=== PATIENT | male | born 1985 | race Hispanic/Latino ===

== ENCOUNTER 2018-01-08 01:24 | Emergency (ER) | payer OTHER, SELFPAY ==
[2018-01-08 01:39] VITALS: BP 139/100; PULSE 74; RESP 16; TEMP 36.8; O2SAT 98; BMI 34.4
--- NOTE | 2018-01-08 01:45 | ED_ITS ---
HPI - Abdominal Pain General Chief Complaint: Urogenital-Male Stated Complaint: thinks he is passing a kidney stone Time Seen by Provider: 01/08/18 01:36 Source: patient Mode of arrival: ambulatory Limitations: no limitations History of Present Illness HPI narrative: This is a 32-year-old male comes in with complaint of kidney stone. Patient states he has a history of kidney stones. He states that this started overnight, he has pain on the right sort of mid abdomen flank region. Patient states that it is not really changing in location. It feels similar to his prior stones. Has not had any fever, he has been nauseated, threw up twice. His urine is quite dark which is not normal he typically does not have any urinary changes. No diarrhea or constipation. he took an ibuprofen prior to arrival. He has had lithotripsy once before. Other times he just strain his urine and passed the stones. he had his appendix out last year and denies any other abdominal surgeries or medical hx. He does not have a urologist that he is established with. Related Data Previous Rx's Medication Instructions Recorded hydrocodone-acetaminophen [[place]] 1 tab PO Q6H PRN #10 tab 01/08/18 levofloxacin [Levaquin] 500 mg PO DAILY #5 tab 01/08/18 tamsulosin [Flomax] 0.4 mg PO DAILY #7 cap 01/08/18 Allergies Allergy/AdvReac Type Severity Reaction Status Date / Time No Known Drug Allergies Allergy Verified 01/08/18 01:53 Review of Systems Review of Systems All systems reviewed & are unremarkable except as noted in HPI and below Constitutional Denies fever(s) Gastrointestinal Gastrointestinal: Reports abdominal pain (right flank), Denies change in bowel habits, Denies constipation, Denies diarrhea, Denies nausea and Denies vomiting Genitourinary Reports hematuria (dark urine), Denies difficulty urinating, Denies genital pain , Denies dysuria, Reports flank pain (right), Denies urinary frequency and Denies urinary hesitancy PFSH Medical History Kidney stones (Acute) Surgical History Hx of appendectomy (Acute) Social History details: Partner, Dre household members: significant other Smoking Status: Never smoker Exam Narrative Exam Narrative: GENERAL: Alert and oriented x three, Moderately obese, well- appearing male in moderate distress. HEENT: Head normocephalic, atraumatic, EOMI, pupils reactive, face symmetric, moist mucous membranes NECK: Supple, full range of motion CARDIOVASCULAR: Regular rate and rhythm without murmurs, rubs or gallops. RESPIRATORY: Breath sounds equal bilaterally, no wheezes rales or rhonchi. ABDOMEN: Soft, nontender. Normoactive bowel sounds all 4 quadrants. No guarding or rebound, rigidity, no mass : No CVA tenderness EXTREMITIES: Normal range of motion, no clubbing or edema. Neurovascularly intact NEUROLOGICAL: Cranial nerves II through XII grossly intact. Moving all extremities SKIN: Warm, dry, no petechiae, no rashes or lesions. Initial Vital Signs Initial Vital Signs: Vital Signs Temperature 98.2 F 01/08/18 01:39 Pulse Rate 74 01/08/18 01:39 Respiratory Rate 16 01/08/18 01:39 Blood Pressure 139/100 H 01/08/18 01:39 Pulse Oximetry 98 01/08/18 01:39 Course Orders Ordered: ED Orders 01/08/18 01:38 Complete Blood Count AUTO DIFF Stat Comprehensive Metabolic Panel Stat Lipase Stat 01/08/18 01:39 Urinalysis and Microscopic Stat Urine Culture Stat 01/08/18 02:38 US renal complete Stat Discontinued Medications Hydrocodone Bitart/Acetaminophen (Vicodin Prepack) 1 bottle MISC SEEINSTR ONE Stop: 01/08/18 03:24 Last Admin: 01/08/18 03:32 Dose: 1 bottle Hydromorphone HCl (Dilaudid) 1 mg IV NOW ONE Stop: 01/08/18 02:39 Last Admin: 01/08/18 02:56 Dose: 1 mg Sodium Chloride (Normal Saline 0.9%) 1,000 mls @ 1,000 mls/hr IV BOLUS ONE Stop: 01/08/18 02:43 Last Infusion: 01/08/18 02:57 Dose: 0 mls/hr Admin: 01/08/18 01:54 Dose: 1,000 mls/hr Ketorolac Tromethamine (Toradol) 30 mg IV NOW ONE Stop: 01/08/18 01:45 Last Admin: 01/08/18 01:54 Dose: 30 mg Levofloxacin (Levaquin) 500 mg PO NOW ONE Stop: 01/08/18 03:24 Last Admin: 01/08/18 03:32 Dose: 500 mg Ondansetron HCl (Zofran) 4 mg IV NOW ONE Stop: 01/08/18 01:45 Last Admin: 01/08/18 01:54 Dose: 4 mg Tamsulosin HCl (Flomax) 0.4 mg PO NOW ONE Stop: 01/08/18 03:24 Last Admin: 01/08/18 03:32 Dose: 0.4 mg Vital Signs - 8 hr 01/08/18 01:39 01/08/18 03:35 Temperature 98.2 F 97.4 F L Pulse Rate 74 69 Respiratory Rate 16 16 Blood Pressure 139/100 H Blood Pressure [Right Arm] 131/92 H Pulse Oximetry 98 96 MDM - Abdominal Pain Lab Data Result diagrams: 01/08/18 01:38 01/08/18 01:38 Lab Results 01/08/18 01/08/18 01/08/18 Range/Units 01:38 01:38 01:39 WBC 7.7 (4.5-11.0) X10^3/uL RBC 5.78 (4.5-5.9) X10^6/uL Hgb 18.7 H (13.5-17.5) g/dL Hct 52.5 (41-53) % MCV 90.8 (80-100) fL MCH 32.4 (26-34) PG MCHC 35.7 (30-36) % RDW 12.7 (11.6-14.8) % Plt Count 190 (150-400) X10^3/uL Neut % (Auto) 48.8 L (50-75) % Lymph % (Auto) 41.6 H (25-40) % [place] % (Auto) 5.8 (3-14) % Eos % (Auto) 3.2 (2-4) % Baso % (Auto) 0.6 (0-2) % Neut # (Auto) 3800 (8009-2640) /uL Sodium 143 (137-145) mmol/L Potassium 4.2 (3.4-5.1) mmol/L Chloride 102 (98-107) mmol/L Carbon Dioxide 29 (22-32) mmol/L BUN 11 (9-20) mg/dL Creatinine 0.90 (0.66-1.25) mg/dL Estimated GFR > 60.0 (>60) mL/min BUN/Creatinine Ratio 12.2 (6-22) Glucose 109 H (70-100) mg/dL Calcium 9.2 (8.4-10.2) mg/dL Total Bilirubin 0.9 (0.2-1.3) mg/dL AST 31 (17-59) IU/L ALT 40 (21-72) IU/L Alkaline Phosphatase 75 (38-126) U/L Total Protein 8.2 (6.3-8.2) g/dL Albumin 4.6 (3.5-5.0) g/dL Globulin 3.6 (1.7-4.1) g/dL Albumin/Globulin Ratio 1.3 (1.0-2.8) Lipase 44 (23-300) U/L Urine Color Brown Urine Appearance Cloudy Urine pH 5.0 (4.5-8.0) Ur Specific [place] >=1.030 H (1.000-1.035) Urine Protein 2+ H (Negative) Urine Glucose (UA) Negative (Normal) g/dL Urine Ketones Trace H (NEGATIVE) Urine Occult Blood 3+ H (Negative) Urine Nitrate Negative (Negative) Urine Bilirubin Negative (NEGATIVE) Urine Urobilinogen 0.2 (0.2) E.U./dL Ur Leukocyte Esterase Trace H (NEGATIVE) Urine RBC >100/hpf (0-5/HPF) Urine WBC 0-1/hpf (0-5/HPF) Urine Bacteria Few (2-10) H (None) Ur Culture Indicated? Specimen cultured Micro UA Comment Not Reportable Imaging Data renal US: Radiologist's impression: Right-sided hydro mild to moderate. Nonobstructing calculi here in mid to inferior poles measuring between 5 and 7 mm. No perinephric fluid collections identified. Normal left kidney. Limited evaluation of the bladder as it is empty at of exam. MDM Narrative Medical decision making narrative: recheck after medications and patient is still quite uncomfortable. Plan for US, and additional pain medication. Patient is feeling much more comfortable after this. CBC, CMP are appropriate, urine shows leuk esterase but no nitrates may have contaminant from epithelials, will cover the abx, plan for flomax, medication for pain control and follow up. Given referral to urology, patient has not seen before. Discussed with patient prelim US shows hydro on right, renal function is normal. Discharge Plan Departure Patient Disposition: Home Clinical Impression: Kidney stone Discharge Date/Time: 01/08/18 03:48 Interventions: ED Discharge Assessment Last Done: 01/08/18 03:47 Instructions: DI for Kidney Stones Activity Restrictions/Additional Instructions: Follow-up with primary care or Urology in the next 3-5 days for recheck. Your US shows hydronephrosis and your renal function needs to be rechecked in several days. Take Flomax once daily until gone Strain urine for stones. Take ibuprofen up to 800 mg every 8 hr as needed for pain. You may take some [place] as needed for breakthrough pain, this medication can make you sleepy do not drive, perform hazards activities or make any major decisions while taking it. Return to the ER for fevers, persistent vomiting, rapidly worsening or increasing abdominal or flank pain, black or bloody stools, passing out or other new or concerning symptoms. Prescriptions: New tamsulosin [Flomax] 0.4 mg capsule 0.4 mg PO DAILY Qty: 7 RF: 0 levofloxacin [Levaquin] 500 mg tablet 500 mg PO DAILY Qty: 5 RF: 0 hydrocodone-acetaminophen [[place]] 5-325 mg tablet 1 tab PO Q6H PRN (Reason: pain) Qty: 10 RF: 0 Referrals: Fran Jones MD [Non-Staff] -
[2018-01-08 01:52] LABS: Add Manual Diff / Slide Review NO; Basophils Percent Auto 0.6 % (0-2); Eosinophils Percent Auto 3.2 % (2-4); Hematocrit 52.5 % (41-53); Hemoglobin 18.7 g/dL (13.5-17.5); Lymphocytes Percent Auto 41.6 % (25-40); Mean Corpuscular HGB Conc 35.7 % (30-36); Mean Corpuscular Hemoglobin 32.4 PG (26-34); Mean Corpuscular Volume 90.8 fL (80-100); Monocytes Percent Auto 5.8 % (3-14); Neutrophils Absolute Auto 3800 /uL (3000-5900); Neutrophils Percent Auto 48.8 % (50-75); Platelet Count 190 X10^3/uL (150-400); Red Blood Cell Count 5.78 X10^6/uL (4.5-5.9); Red Cell Distribution Width 12.7 % (11.6-14.8); White Blood Cell Count 7.7 X10^3/uL (4.5-11.0)
[2018-01-08] MEDS: SODIUM CHLORIDE 0.9% 1,000 ML 1000 ML IV (01:54)
[2018-01-08] MEDS: ONDANSETRON 4 MG/2 ML INJ IV (01:54)
[2018-01-08] MEDS: KETOROLAC 60 MG/2 ML VIAL 30 MG IV (01:54)
[2018-01-08 01:57] LABS: Alanine Aminotransferase 40 IU/L (21-72); Albumin 4.6 g/dL (3.5-5.0); Albumin Globulin Ratio 1.3 (1.0-2.8); Alkaline Phosphatase 75 U/L (38-126); Aspartate Aminotransferase 31 IU/L (17-59); BUN Creatinine Ratio 12.2 (6-22); Bilirubin Total 0.9 mg/dL (0.2-1.3); Blood Urea Nitrogen 11 mg/dL (9-20); Calcium 9.2 mg/dL (8.4-10.2); Carbon Dioxide 29 mmol/L (22-32); Chloride 102 mmol/L (98-107); Estimated Glomerular Filt Rate > 60.0 mL/min (>60); Globulin 3.6 g/dL (1.7-4.1); Glucose 109 mg/dL (70-100); HEMOLYSIS 28 (0-50); Lipase 44 U/L (23-300); Potassium 4.2 mmol/L (3.4-5.1); Sodium 143 mmol/L (137-145); Total Protein 8.2 g/dL (6.3-8.2)
[2018-01-08 02:01] LABS: Bilirubin Urine UA NEGATIVE (NEGATIVE); Glucose Urine UA NEGATIVE (Normal); Ketones Urine UA TRACE (NEGATIVE); Leukocyte Esterase Urine UA TRACE (NEGATIVE); Nitrite Urine UA NEGATIVE (Negative); Occult Blood Urine UA 3+ (Negative); Protein Urine UA 2+ (Negative); Specific Gravity Urine UA >=1.030 (1.000-1.035); Urobilinogen Urine UA 0.2 E.U./dL (0.2)
[2018-01-08 02:04] LABS: Appearance Urine UA CLOUDY; Color Urine UA BROWN
[2018-01-08 02:07] LABS: RBC Urine >100/HPF (0-5/HPF)
[2018-01-08 02:08] LABS: Bacteria Urine Few (2-10); Culture Indicated Urine Specimen Cultured; WBC Urine 0-1/HPF (0-5/HPF)
--- NOTE | 2018-01-08 02:38 | DI.US.S_ITS ---
PROCEDURE: US RENAL COMPLETE INDICATIONS: right flank pain, hx of stone TECHNIQUE: Real-time scanning was performed of the kidneys and bladder, with image documentation. COMPARISON: None. FINDINGS: Kidneys: Kidneys are normal in size. Right kidney measures 12.3 cm long; left kidney measures 13.1 cm long. Right renal cortical thickness is 2.2 cm; left renal cortical thickness is 1.8 cm. Renal cortical echotexture is normal. Mild to moderate right sided hydronephrosis is noted. 7 mm in diameter nonobstructing stone noted in the inferior pole of the right kidney. 6 mm diameter nonobstructing stone noted in the superior pole of the right kidney. 5 mm in diameter nonobstructing stone in the superior pole of the right kidney. No left-sided renal stones or hydronephrosis. No suspicious solid mass lesions. Bladder: Urinary bladder was empty at the time of imaging. Miscellaneous: No free pelvic fluid. IMPRESSION: 1. Mild to moderate right-sided hydronephrosis. 2. Nonobstructing right renal cortical stones. 3. No left-sided renal stones or hydronephrosis. Dictated by: Susannah Felix MD, PhD on 01/08/2018 at 8:32 Approved by: Susannah Felix MD, PhD on 01/08/2018 at 8:34
[2018-01-08] MEDS: HYDROMORPHONE 1 MG INJ IV (02:56)
[2018-01-08] MEDS: HYDROCODONE/ACET 5/325 PREPACK 1 BOTTLE MISC (03:32)
[2018-01-08] MEDS: TAMSULOSIN 0.4 MG CAPSULE PO (03:32)
[2018-01-08] MEDS: levoFLOXacin 250 MG TABLET 500 MG PO (03:32)
[2018-01-08 03:35] VITALS: BP 131/92; PULSE 69; RESP 16; TEMP 36.3; O2SAT 96
== END 2018-01-08 03:48 | disposition home or self-care (01) ==
PROVIDERS: Emergency Provider Emergency Medicine
DX: N20.0 Calculus of kidney (principal)
CPT/HCPCS: 36591; 76770; 80053; 81001; 83690; 85025; 87077; 87086; 87147; 96361; 96374; 96375; 99283; 99284; J1170; J1885; J2405

== ENCOUNTER 2019-01-20 05:50 | Emergency (ER) | payer OTHER, SELFPAY ==
[2019-01-20 05:51] VITALS: BP 156/107; PULSE 77; RESP 18; TEMP 36.6; O2SAT 97; BMI 34.0
--- NOTE | 2019-01-20 06:02 | ED_ITS ---
HPI - Male Genitourinary General Chief complaint: Urogenital-Male Stated complaint: thinks he has a kidney stone Time Seen by Provider: 01/20/19 05:51 Source: patient Mode of arrival: Ambulatory Limitations: no limitations History of Present Illness HPI Narrative: 33-year-old male here for evaluation of what he thinks is a right-sided kidney stone. He states he has had multiple kidney stones in the past. He states that he has never been able to catch any the stones but he has passed them all on his own. Has never had any surgical removal of the stones. He states that approximately 0300 hours the morning he woke up with right-sided pain radiating around to his right groin that he states feels like prior kidney stones. No vomiting. Has never seen a urologist for symptoms. Has not tried anything for symptoms prior to arrival Related Data Previous Rx's Medication Instructions Recorded hydrocodone-acetaminophen [[place]] 1 tab PO Q6H PRN #10 tab 01/08/18 levofloxacin [Levaquin] 500 mg PO DAILY #5 tab 01/08/18 tamsulosin [Flomax] 0.4 mg PO DAILY #7 cap 01/08/18 Allergies Allergy/AdvReac Type Severity Reaction Status Date / Time No Known Drug Allergies Allergy Verified 01/08/18 01:53 Review of Systems Constitutional Constitutional: Denies fever(s) Cardiovascular Cardiovascular: Denies chest pain and Denies dyspnea Respiratory Respiratory: Denies dyspnea Gastrointestinal Gastrointestinal: Reports abdominal pain, Denies nausea and Denies vomiting Genitourinary Genitourinary: Reports hematuria, Reports flank pain and Reports testicular pain Musculoskeletal Musculoskeletal: Reports back pain (Right flank), Denies myalgias and Denies arthralgias Integumentary/Breasts Skin/Breast: Denies rash Neurologic Neurologic: Denies behavioral changes Psychiatric Psychiatric: Denies behavioral changes Hematologic/Lymphatic Hematologic/Lymphatic: Denies easy bleeding and Denies easy bruising Patient History Medical History Kidney stones (Acute) Surgical History (Updated 01/08/18 @ 01:58 by Candy Hastings DO) Hx of appendectomy (Acute) Social History details: Partner, Dre household members: significant other Smoking Status: Current every day smoker alcohol intake frequency: 0-2 drinks per day Substance Use Type: does not use Exam Initial Vital Signs Initial Vital Signs: Vital Signs Temperature 97.8 F 01/20/19 05:51 Pulse Rate 77 01/20/19 05:51 Respiratory Rate 18 01/20/19 05:51 Blood Pressure 156/107 H 01/20/19 05:51 Pulse Oximetry 97 01/20/19 05:51 Const General: cooperative, comfortable and well developed Orientation: alert, awake and oriented x3 HENMT Head: normal to inspection and normocephalic Resp Effort & Inspection: normal respiratory effort Auscultation: clear to auscultation bilaterally Cardio Rate: regular rate Rhythm: regular rhythm Pulses: radial pulses present GI Inspection: non-distended Palpation: soft, No firm and No tender Skin Lesions: no lesions Rashes: no rashes Neuro General: alert and awake Cognition: normal cognition Speech: speech normal Extrem General: normal to inspection and capillary refill normal Psych Appearance: grossly normal and well kempt Course Orders Ordered: ED Orders 01/20/19 06:00 Basic Metabolic Panel Stat Complete Blood Count AUTO DIFF Stat Lipid Panel Stat 01/20/19 06:15 Urinalysis and Microscopic Stat Discontinued Medications Lidocaine HCl 7.8 ml/ Sodium (Chloride) 57.8 mls @ 346.8 mls/hr IV NOW ONE Stop: 01/20/19 06:54 Last Admin: 01/20/19 06:43 Dose: 346.8 mls/hr Documented by: SALUD Lidocaine HCl 7.8 ml/ Sodium (Chloride) 57.8 mls @ 346.8 mls/hr IV NOW ONE Stop: 01/20/19 06:04 Lidocaine HCl 7.8 ml/ Sodium (Chloride) 57.8 mls @ 346.8 mls/hr IV NOW ONE Stop: 01/20/19 06:16 Ketorolac Tromethamine (Toradol) 30 mg IV NOW ONE Stop: 01/20/19 06:31 Ketorolac Tromethamine (Toradol) 30 mg IV NOW ONE Stop: 01/20/19 06:31 Ketorolac Tromethamine (Toradol) 30 mg IV NOW ONE Stop: 01/20/19 06:16 Last Admin: 01/20/19 06:42 Dose: 30 mg Documented by: LOUIEEED Vital Signs Vital signs: Vital Signs - 8 hr 01/20/19 05:51 Temperature 97.8 F Pulse Rate 77 Respiratory Rate 18 Blood Pressure 156/107 H Pulse Oximetry 97 MDM - Male Genitourinary Medical Records Attestation: I reviewed the patient's medical records. Lab Data Result diagrams: 01/20/19 06:00 01/20/19 06:00 Labs: Lab Results 01/20/19 01/20/19 Range/Units 06:00 06:00 WBC 8.4 (4.5-11.0) X10^3/uL RBC 5.79 (4.5-5.9) X10^6/uL Hgb 18.9 H (13.5-17.5) g/dL Hct 53.0 (41-53) % MCV 91.6 (80-100) fL MCH 32.7 (26-34) PG MCHC 35.7 (30-36) % RDW 12.6 (11.6-14.8) % Plt Count 203 (150-400) X10^3/uL Neut % (Auto) Not Reportable Lymph % (Auto) Not Reportable [place] % (Auto) Not Reportable Eos % (Auto) Not Reportable Baso % (Auto) Not Reportable Lymph # (Auto) Not Reportable [place] # (Auto) Not Reportable Baso # (Auto) Not Reportable Sodium 138 (137-145) mmol/L Potassium 4.3 (3.4-5.1) mmol/L Chloride 107 (98-107) mmol/L Carbon Dioxide 25 (22-32) mmol/L BUN 11 (9-20) mg/dL Creatinine 0.90 (0.66-1.25) mg/dL Estimated GFR > 60.0 (>60) mL/min BUN/Creatinine Ratio 12.2 (6-22) Glucose 121 H (70-100) mg/dL Calcium 9.3 (8.4-10.2) mg/dL Triglycerides 636 H (35-150) mg/dL Cholesterol 205 H (140-199) mg/dL LDL Cholesterol, Calc TNP HDL Cholesterol 27 L (40-60) mg/dL MDM Narrative Medical decision making narrative: Patient has had multiple kidney stones in the past he states that this particular episode feels like kidney stone. His creatinine is unremarkable. Lab called and stated that his CBC had a tremendous amount of lipids in it that is what the lipid panel was ordered. Waiting for urinalysis. Medications were ordered. Care turned over to Dr. Megan benítez of shift to follow up on urinalysis and continue disposition. Discharge Plan Departure Clinical Impression: Renal colic on right side, Hypertriglyceridemia Activity Restrictions/Additional Instructions: It is important that you [place] to [place] your elevated triglycerides. Prescriptions: No Action tamsulosin [Flomax] 0.4 mg capsule 0.4 mg PO DAILY Qty: 7 RF: 0 levofloxacin [Levaquin] 500 mg tablet 500 mg PO DAILY Qty: 5 RF: 0 hydrocodone-acetaminophen [[place]] 5-325 mg tablet 1 tab PO Q6H PRN (Reason: pain) Qty: 10 RF: 0
[2019-01-20 06:21] LABS: BUN Creatinine Ratio 12.2 (6-22); Blood Urea Nitrogen 11 mg/dL (9-20); Calcium 9.3 mg/dL (8.4-10.2); Carbon Dioxide 25 mmol/L (22-32); Chloride 107 mmol/L (98-107); Estimated Glomerular Filt Rate > 60.0 mL/min (>60); Glucose 121 mg/dL (70-100); Sodium 138 mmol/L (137-145)
[2019-01-20 06:32] LABS: HEMOLYSIS 104 (0-50)
[2019-01-20 06:33] LABS: Potassium 4.3 mmol/L (3.4-5.1)
[2019-01-20 06:36] LABS: Cholesterol 205 mg/dL (140-199); HDL Cholesterol 27 mg/dL (40-60); Triglycerides 636 mg/dL (35-150)
[2019-01-20] MEDS: KETOROLAC 60 MG/2 ML VIAL 30 MG IV (06:42)
[2019-01-20] MEDS: LIDOCAINE 2% 7.8 ML in SODIUM CHLORIDE 0.9% 50 ML 346.8 ML IV (06:43)
[2019-01-20 06:48] LABS: White Blood Cell Count 8.4 X10^3/uL (4.5-11.0)
[2019-01-20 06:49] LABS: Hemoglobin 18.9 g/dL (13.5-17.5); Mean Corpuscular HGB Conc 35.7 % (30-36); Mean Corpuscular Hemoglobin 32.7 PG (26-34); Mean Corpuscular Volume 91.6 fL (80-100); Platelet Count 203 X10^3/uL (150-400); Red Blood Cell Count 5.79 X10^6/uL (4.5-5.9); Red Cell Distribution Width 12.6 % (11.6-14.8)
[2019-01-20 06:52] LABS: Add Manual Diff / Slide Review YES
[2019-01-20 07:18] VITALS: BP 149/96; PULSE 65; RESP 16; O2SAT 96
[2019-01-20 07:49] LABS: Appearance Urine UA CLOUDY; Color Urine UA BROWN; Glucose Urine UA NEGATIVE (Negative); Protein Urine UA 2+ (Negative); Specific Gravity Urine UA 1.025 (1.000-1.035); pH Urine UA 5.5 (4.5-8.0)
[2019-01-20 07:50] LABS: Bilirubin Urine UA 1+ (NEGATIVE); Ketones Urine UA TRACE (NEGATIVE); Leukocyte Esterase Urine UA TRACE (NEGATIVE); Nitrite Urine UA NEGATIVE (Negative); Occult Blood Urine UA 3+ (Negative); RBC Urine >100/HPF (0-5/HPF); Urobilinogen Urine UA 0.2 E.U./dL (0.2)
[2019-01-20 07:51] LABS: Bacteria Urine Many (>30); Calcium Oxalate Crystals Urine Few; Culture Indicated Urine Specimen Cultured; WBC Urine 5-10/HPF (0-5/HPF)
[2019-01-20 07:53] LABS: Ictotest Urine Negative (Negative)
[2019-01-20 08:01] LABS: Neutrophils Absolute Manual 4368 /uL (3000-5900); Total Cells Counted 100
[2019-01-20 08:03] LABS: Anisocytosis 1+; Poikilocytosis 1+
[2019-01-20] MEDS: TRIMETH/SULFA 160/800 (DS) TABLET 1 TAB PO (08:37)
[2019-01-20 09:09] VITALS: BP 139/91; PULSE 63; RESP 18; O2SAT 99
== END 2019-01-20 09:09 | disposition home or self-care (01) ==
PROVIDERS: Emergency Medicine; Emergency Provider Emergency Medicine
DX: N23 Unspecified renal colic (principal); E78.1 Pure hyperglyceridemia
CPT/HCPCS: 36415; 80048; 80061; 81001; 85025; 87086; 96374; 99283; J1885

== ENCOUNTER 2019-05-05 01:45 | Emergency (ER) | payer OTHER, SELFPAY ==
[2019-05-05 01:53] VITALS: BP 171/102; PULSE 86; RESP 24; TEMP 36.8; O2SAT 97; BMI 34.8
--- NOTE | 2019-05-05 01:57 | DI.RAD.S_ITS ---
PROCEDURE: XR CHEST 2V INDICATIONS: SOB, cough, wheeze TECHNIQUE: 2 views of the chest were acquired. COMPARISON: None. FINDINGS: Surgical changes and devices: None. Lungs and pleura: Lungs are clear. No pleural effusions or pneumothorax. No focal consolidation. Mediastinum: Mediastinal contours are normal. Heart size is normal. Bones and chest wall: No suspicious bony abnormalities. Soft tissues appear unremarkable. IMPRESSION: No acute cardiopulmonary abnormalities or focal airspace disease. Dictated by: Shree Crowley M.D. on 05/05/2019 at 7:09 Approved by: Shree Crowley M.D. on 05/05/2019 at 7:11
[2019-05-05] MEDS: ALBUTEROL/IPRATROPIUM 3 ML AMPUL INH (02:03)
[2019-05-05] MEDS: predniSONE 20 MG TABLET 40 MG PO (02:03)
[2019-05-05 02:07] VITALS: PULSE 86; RESP 20; O2SAT 97
[2019-05-05] MEDS: ALBUTEROL HFA PREPACK 1 BOX MISC (02:20)
[2019-05-05 02:22] VITALS: PULSE 87; RESP 20; O2SAT 98
[2019-05-05 02:38] VITALS: BP 141/79; PULSE 89; RESP 18; O2SAT 95
--- NOTE | 2019-05-05 02:58 | ED_ITS ---
HPI - URI/Sore Throat General Chief Complaint: Upper Respiratory Symptoms Stated Complaint: wheezing cough/chest tightness x14 days Time Seen by Provider: 05/05/19 01:48 Source: patient Mode of arrival: Ambulatory Limitations: no limitations History of Present Illness HPI Narrative: 34-year-old male daily smoker with noncontributory medical history presents with a chief complaint of wheezing, difficulty breathing, significant coughing and some blood tinged sputum today. He has been coughing and hacking with some wheeze for 1-2 weeks. He has had no fever chills. He denies any nausea or vomiting. He denies any recent travel and no exposure to known persons of interest for COVID-19. He states his cough gets significantly worse when he lays flat or takes a deep breath. MD Complaint: cough and rhinorrhea Onset (ago): day(s) Duration: constant Severity: moderate Relieving factors: nothing Exacerbating factors: other Description of mucous: clear Able to tolerate fluids by mouth: Yes Treatments prior to arrival: none Related Data Previous Rx's Medication Instructions Recorded hydrocodone-acetaminophen [Lorimor] 1 tab PO Q6H PRN #10 tab 01/08/18 levofloxacin [Levaquin] 500 mg PO DAILY #5 tab 01/08/18 tamsulosin [Flomax] 0.4 mg PO DAILY #7 cap 01/08/18 hydrocodone-acetaminophen 1 tab PO Q4-6H PRN #14 tab 01/20/19 ondansetron 4 mg PO Q6H PRN #14 tab 01/20/19 sulfamethoxazole-trimethoprim 1 tab PO Q12H #14 tab 01/20/19 [Bactrim DS] benzonatate [Tessalon Perles] 100 mg PO TID PRN #14 cap 05/05/19 Allergies Allergy/AdvReac Type Severity Reaction Status Date / Time No Known Drug Allergies Allergy Verified 01/08/18 01:53 Review of Systems Constitutional Constitutional: Denies chills, Denies fatigue, Denies fever(s), Denies frequent falls, Denies lethargy and Denies weakness Eyes Eyes: Denies change in vision, Denies eye discharge, Denies irritation and Denies loss of vision ENT Ears, Nose, Mouth, and Throat: Denies change in voice, Denies dizziness, Reports nasal congestion, Denies neck pain, Denies sore throat and Denies throat swelling Cardiovascular Cardiovascular: Denies chest pain, Denies irregular heart rhythm, Denies lightheadedness, Denies palpitations, Denies dyspnea, Denies dyspnea on exertion and Denies orthopnea Respiratory Respiratory: Denies cough, Denies dyspnea, Denies dyspnea on exertion and Reports wheezing Gastrointestinal Gastrointestinal: Denies abdominal pain, Denies change in bowel habits, Denies diarrhea, Denies nausea and Denies vomiting Genitourinary Genitourinary: Denies hematuria, Denies flank pain, Denies urinary incontinence and Denies urinary urgency Musculoskeletal Musculoskeletal: Denies back pain, Denies muscle weakness, Denies neck pain, De nies numbness and Denies tingling Integumentary/Breasts Skin/Breast: Denies pruritus, Denies erythema, Denies rash and Denies wounds Neurologic Neurologic: Denies behavioral changes, Denies confusion, Denies dizziness, Denies frequent falls, Denies loss of vision, Denies numbness, Denies tingling and Denies weakness Psychiatric Psychiatric: Denies anxiety, Denies behavioral changes, Denies confusion, Denies depression, Denies homicidal ideation and Denies suicidal ideation Endocrine Endocrine: Denies fatigue, Denies flushing and Denies palpitations Hematologic/Lymphatic Hematologic/Lymphatic: Denies easy bruising Allergic/Immunologic Allergic/Immunologic: Denies urticaria, Denies throat swelling and Reports wheezing Patient History Medical History Kidney stones (Acute) Surgical History Hx of appendectomy (Acute) Social History details: Partner, Dre household members: significant other Smoking Status: Current every day smoker Smoking Status: Current every day smoker alcohol intake frequency: 0-2 drinks per day Substance Use Type: does not use Exam Narrative Exam Narrative: GENERAL: [34] year old patient appears stated age. Well- nourished, well-developed patient, in mild distress. HEAD: Atraumatic. Normocephalic. EYES: Pupils equal round and reactive. Extraocular motions intact. No scleral icterus. No injection or drainage. ENT: Nose without bleeding, purulent drainage. Throat without erythema, tonsillar hypertrophy or exudate. Airway patent. NECK: Trachea midline. Non tender CARDIOVASCULAR: Regular rate and rhythm without murmurs, gallops, or rubs. RESPIRATORY: Inspiratory and expiratory wheeze with increased work of breathing. No rales or rhonchi GASTROINTESTINAL: Abdomen soft, non-tender, nondistended. EXTREMITIES: No edema or joint tenderness. BACK: Nontender without deformity or crepitance. No flank tenderness. NEURO: AOx3. SKIN: No rash or erythema of visible areas Initial Vital Signs Initial Vital Signs: Vital Signs Temperature 98.2 F 05/05/19 01:53 Pulse Rate 86 05/05/19 01:53 Respiratory Rate 24 05/05/19 01:53 Blood Pressure 171/102 H 05/05/19 01:53 Pulse Oximetry 97 05/05/19 01:53 Course Course Course Narrative: Patient has a remarkable improvement after above-stated therapies. He feels tremendous relief and is requesting discharge. Orders Ordered: ED Orders 05/05/19 01:57 XR chest 2V Stat Discontinued Medications Albuterol (Ventolin Hfa Prepack) 1 box MISC SEEINSTR ONE Stop: 05/05/19 02:18 Last Admin: 05/05/19 02:20 Dose: 1 box Documented by: HUSSEIN Albuterol/Ipratropium (Duoneb) 3 ml INH NOW ONE Stop: 05/05/19 01:58 Last Admin: 05/05/19 02:03 Dose: 3 ml Documented by: MERCED Prednisone (Deltasone) 40 mg PO NOW ONE Stop: 05/05/19 01:58 Last Admin: 05/05/19 02:03 Dose: 40 mg Documented by: MERCED Vital Signs Vital signs: Vital Signs - 8 hr 05/05/19 01:53 05/05/19 02:07 05/05/19 02:22 Temperature 98.2 F Pulse Rate 86 86 87 Respiratory Rate 24 20 20 Blood Pressure 171/102 H Blood Pressure [Right Arm] Pulse Oximetry 97 97 98 05/05/19 02:38 Temperature Pulse Rate 89 Respiratory Rate 18 Blood Pressure Blood Pressure [Right Arm] 141/79 H Pulse Oximetry 95 MDM - URI/Sore Throat Imaging Data Chest x-ray: My Impression: No acute process MDM Narrative Medical decision making narrative: Patient without any history of asthma presents with significant wheezing, difficulty breathing and an episode of blood-tinged sputum. He has had no fever and no production of yellow or brown sputum. Chest x-ray shows no obvious infiltrate. Patient had a near complete resolution of symptoms with bronchodilators. His blood tinged sputum is likely a consequence of his frequent coughing and hacking over the past few days as bacterial pneumonia, gabriela hemoptysis, pulmonary embolism considered Discharge Plan Departure Patient Disposition: Home Clinical Impression: Upper respiratory infection Qualifiers: URI type: unspecified viral URI Qualified Code(s): J06.9 - Acute upper respiratory infection, unspecified Instructions: DI for Viral Upper Respiratory Infection -- Adult Activity Restrictions/Additional Instructions: *You have been diagnosed with [acute viral upper respiratory infection with bronchospasm. ] *What to do: *Take medications as directed *Follow up with your primary care provider in 2-3 days, call for an appointment. Let them know you were seen in the Emergency Department and that we ask that you be seen in follow up *Return to ER if you should have any new, worsening or concerning symptoms Prescriptions: New benzonatate [Tessalon Perles] 100 mg capsule 100 mg PO TID PRN (Reason: cough) Qty: 14 RF: 0 No Action tamsulosin [Flomax] 0.4 mg capsule 0.4 mg PO DAILY Qty: 7 RF: 0 levofloxacin [Levaquin] 500 mg tablet 500 mg PO DAILY Qty: 5 RF: 0 hydrocodone-acetaminophen [Lorimor] 5-325 mg tablet 1 tab PO Q6H PRN (Reason: pain) Qty: 10 RF: 0 sulfamethoxazole-trimethoprim [Bactrim DS] 800-160 mg tablet 1 tab PO Q12H Qty: 14 RF: 0 hydrocodone-acetaminophen 5-325 mg tablet 1 tab PO Q4-6H PRN (Reason: pain) Qty: 14 RF: 0 ondansetron 4 mg tablet,disintegrating 4 mg PO Q6H PRN (Reason: nausea and vomiting) Qty: 14 RF: 0
== END 2019-05-05 03:01 | disposition home or self-care (01) ==
PROVIDERS: Emergency Provider Emergency Medicine
DX: J06.9 Acute upper respiratory infection, unspecified (principal)
CPT/HCPCS: 71046; 94640; 99283